=== PATIENT | male | born 1940 | race Caucasian/White ===

== ENCOUNTER 2019-06-06 12:14 | Day surgery (SDC) | payer MEDICARE, BC ==
[~2019-06-06] VITALS: Ht 182.9 cm; Wt 81.6 kg
[~2019-06-06 12:14] MED LIST: ACYC-114 PO; APIX5TAB PO; ASCO10004 PO; ATOR20TA37 PO; CARV-39 PO; CEFAZOLIN 1,000 MG ONE; CLIN300C8 PO; DABI150C PO; FLEC100T PO; GLYCOPYRROLATE 0.2MG/1ML, 5ML ONE; LISI-170 PO; MULT-6 PO; OMEG-14 PO; OMEP-110 PO; ONDANSETRON 2MG/ML, 2ML ONE; PANT40TA3 PO; SUGAMMADEX 200 MG/2 ML IVPush ONE; VIT1CAPS16 PO; VITA1TAB19 PO
[2019-06-06] MEDS ORDERED: LACTATED RINGERS 1,000 ML IV SCH (12:37)
[2019-06-06 12:53] VITALS: BP 142/81
[2019-06-06] MEDS ORDERED: EPINEPHRINE 1 MG/ML, 1ML ONE (13:44)
[2019-06-06] MEDS ORDERED: BUPIVACAINE/PF 0.5% ONE (13:44)
[2019-06-06] MEDS ORDERED: MIDAZOLAM 1 MG/ML, 2ML ONE (15:17)
[2019-06-06] MEDS ORDERED: ROCURONIUM 10MG/ML,5ML ONE (15:18)
[2019-06-06] MEDS ORDERED: FENTANYL PF 250 MCG/5ML ONE (15:18)
[2019-06-06] MEDS ORDERED: PROPOFOL 10 MG/ML, 20ML ONE (15:18)
[2019-06-06] MEDS ORDERED: SUCCINYLCHOLINE 20 MG/ML, 10ML ONE (15:19)
[2019-06-06] MEDS ORDERED: DEXAMETHASONE 4 MG/ML, 1ML ONE (15:55)
[2019-06-06] MEDS ORDERED: LABETALOL 5MG/ML, 20ML IV PRN (16:30)
[2019-06-06] MEDS ORDERED: EPHEDRINE 50 MG/ML, 1ML IVPush PRN (16:30)
[2019-06-06] MEDS ORDERED: HALOPERIDOL 5 MG/ML IV PRN (16:30)
[2019-06-06] MEDS ORDERED: OXYcodone 5 MG/5 ML ORAL.SOL UDC PO PRN (16:30)
[2019-06-06] MEDS ORDERED: ALBUTEROL SULFATE 2.5 MG/3 ML NPPB PRN (16:30)
[2019-06-06] MEDS ORDERED: PROMETHAZINE 25 MG/ML, 1ML IV PRN (16:30)
[2019-06-06] MEDS ORDERED: ACETAMINOPHEN 325 MG TABLET PO PRN (16:30)
[2019-06-06] MEDS ORDERED: HYDROmorphone 2 MG/ML, 1ML IVPush PRN (16:30)
[2019-06-06] MEDS ORDERED: FENTANYL PF 100 MCG/2ML IV PRN (16:30)
[2019-06-06] MEDS ORDERED: MEPERIDINE/PF 25MG/ML,1ML IVPush PRN (16:30)
[2019-06-06] MEDS ORDERED: ONDANSETRON ODT 8 MG PO PRN (16:30)
[2019-06-06] MEDS ORDERED: DIAZEPAM 5 MG/ML, 2ML IVPush PRN (16:30)
[2019-06-06] MEDS ORDERED: ONDANSETRON 2MG/ML, 2ML IV PRN (16:30)
[2019-06-06] MEDS ORDERED: hydrALAzine 20 MG/ML, 1ML IV PRN (16:30)
[2019-06-06] MEDS ORDERED: MIDAZOLAM 1 MG/ML, 2ML IV PRN (16:30)
[2019-06-06] MEDS ORDERED: PROMETHAZINE 12.5 MG SUPP PR PRN (16:30)
[2019-06-06] MEDS ORDERED: ACETAMINOPHEN 325 MG TABLET ONE (17:08)
[2019-06-06] MEDS ORDERED: OXYcodone 5 MG/5 ML ORAL.SOL UDC ONE (17:08)
[2019-06-06] MEDS ORDERED: ACETAMINOPHEN 650 MG/20.3 ML UDC ONE (17:08)
[2019-06-06] MEDS ORDERED: FENTANYL PF 100 MCG/2ML ONE (17:08)
[2019-06-06] MEDS ORDERED: KETOROLAC 30 MG/1 ML ONE (17:48)
[2019-06-06] MEDS ORDERED: KETOROLAC 30 MG/1 ML IVPush ONE (18:00)
== END 2019-06-06 19:06 | disposition home or self-care (01) ==
LOC: OUT 12:14
PROVIDERS: ATTEND Surgery
DX: K40.90 Unilateral inguinal hernia, without obstruction or gangrene, not specified as recurrent (principal); I10 Essential (primary) hypertension; I48.0 Paroxysmal atrial fibrillation; E78.5 Hyperlipidemia, unspecified; K21.9 Gastro-esophageal reflux disease without esophagitis; H54.62 Unqualified visual loss, left eye, normal vision right eye; Z79.01 Long term (current) use of anticoagulants; Z79.899 Other long term (current) drug therapy; Z87.891 Personal history of nicotine dependence; Z91.013 Allergy to seafood; Z96.619 Presence of unspecified artificial shoulder joint; Z82.49 Family history of ischemic heart disease and other diseases of the circulatory system
CPT/HCPCS: 49505; 93005; C1781; J0171; J0330; J0690; J1100; J1885; J2250; J2405; J2704; J3010; J7120